=== PATIENT | male | born 1965 | race Caucasian/White ===

== ENCOUNTER 2017-03-26 07:24 | Day surgery (SDC) | payer MEDICARE, OTHER ==
[2017-03-22 14:38] VITALS: BMI 26.2
[~2017-03-26 07:24] MED LIST: LACTATED RINGERS 1,000 ML IV SCH
[2017-03-26 07:39] VITALS: TEMP 96.9
[2017-03-26] MEDS ORDERED: PROPOFOL 10 MG/ML 20 ML VIAL IV ONE (08:28)
[2017-03-26] MEDS ORDERED: LIDOCAINE 1% INJ 10MG/ML (20 ML MDV) ONE (08:28)
[2017-03-26 09:01] VITALS: RESP 18
--- NOTE | 2017-03-26 09:01 | P.PCN ---
Date of Procedure: 03/26/17 Preoperative Diagnosis: Postoperative Diagnosis: Procedure(s) Performed: Procedure: Colonoscopy and polypectomy. Preoperative diagnosis: Hemoccult-positive stools. Postoperative diagnosis: Rectal polyp snared but no large polyps or cancer. Preparation: HalfLytely prep. Sedation: Was provided by anesthesia. Brief clinical history: The patient is a 51-year-old male who is referred for this evaluation because of finding of Hemoccult-positive stools. There is no family history of colon cancer or any abdominal complaints or overt bleeding. The patient and has history of reflux but there is no recent change in his symptoms. This evaluation is to rule out colon neoplasia. This would be his first colonoscopy. Procedure: With the patient on his left lateral decubitus position and after informed consent and adequate sedation, the perianal area was inspected and it did not show any fissures or fistulas. There were no masses felt on digital rectal examination. The Olympus CFQ 160L video colonoscope was then inserted in the rectum in the usual fashion and advanced to the cecum. The mucosa appeared healthy. No obvious diverticular disease or other obvious pathology noted. In the rectum, there was a 1 cm polyp within 2 cm from the anorectal junction that was snared and retrieved by suction. No large polyps or cancer noted. I retroflexed the endoscope in the rectum before the endoscope was withdrawn. The patient tolerated the procedure well. Plan: The patient was reassured. In the absence of new upper GI complaints or anemia, I did not recommend upper GI workup at this time and this can be kept as a contingency based on his course. With the finding of polyp, I recommended repeat exam in 5 years. He will follow up with you as planned. Implants: Indications for Procedure: Operative Findings: Description of Procedure:
[2017-03-26 09:52] VITALS: BP 110/73; PULSE 80
== END 2017-03-26 09:42 | disposition home or self-care (01) ==
LOC: ORWHC2ENDO 07:24
DX: D12.8 Benign neoplasm of rectum (principal); R19.5 Other fecal abnormalities; I10 Essential (primary) hypertension; K21.9 Gastro-esophageal reflux disease without esophagitis; Z79.899 Other long term (current) drug therapy
CPT/HCPCS: 88305; 45385; J2001; J2704

== ENCOUNTER 2020-02-23 16:01 | Emergency (ER) | payer OTHER ==
[2020-02-23 16:08] VITALS: RESP 18
[2020-02-23 16:40] LABS: Basophils % (A) 0 %; Eosinophils # (A) 0.1 k/uL (0-0.7); Eosinophils % (A) 1 %; HCT 47.4 % (39.0-53.0); HGB 16.4 gm/dL (13.0-17.5); Lymphocytes # (A) 1.2 k/uL (1.0-4.8); Lymphocytes % (A) 11 %; MCH 32.2 pg (25.0-35.0); MCHC 34.6 g/dL (31.0-37.0); Monocytes # (A) 0.5 k/uL (0-1.0); Monocytes % (A) 5 %; Neutrophils # (A) 8.5 k/uL (1.3-7.7); Neutrophils % (A) 82 %; Platelet Count 296 k/uL (150-450); RDW 12.6 % (11.5-15.5); WBC 10.4 k/uL (3.8-10.6)
[2020-02-23 16:47] LABS: ALT 25 U/L (4-49); AST 22 U/L (17-59); African American GFR (CKD) >90 (>60 ml/min/1.73 sqM); Albumin 4.6 g/dL (3.5-5.0); Alkaline Phosphatase 99 U/L (38-126); Anion Gap 9 mmol/L; Blood Urea Nitrogen 17 mg/dL (9-20); Calcium 9.6 mg/dL (8.4-10.2); Carbon Dioxide 25 mmol/L (22-30); Chloride 104 mmol/L (98-107); Glucose 113 mg/dL (74-99); Non-African American GFR(CKD) >90 (>60 ml/min/1.73 sqM); Potassium 4.1 mmol/L (3.5-5.1); Sodium 138 mmol/L (137-145); Total Bilirubin 0.7 mg/dL (0.2-1.3)
--- NOTE | 2020-02-23 17:05 | ED ---
Recheck HPI - General Chief Complaint: Recheck/Abnormal Lab/Rx Stated Complaint: High BP Time Seen by Provider: 02/23/20 16:10 Source: patient Mode of arrival: ambulatory Limitations: no limitations - History of Present Illness Initial Comments: 54-year-old male presenting today for chief complaint of elevated blood pressure readings. Patient states he's been stressed from work and he called in today. Patient states his petechia his blood pressure which she noted to be higher. Patient denies any specific symptoms he states he was highly fatigue and felt like his legs were heavy today. Denies any leg weakness or sensation deficits. Patient denies any headache nausea vomiting visual changes diplopia chest pain pressure or shortness of breath he denies any leg swelling denies any nausea vomiting decreased urine output hematuria ripping tearing back pain. Patient is no focalizing complaints patient states he was told he needed a work note. Patient then presented to the ER for elevated home BP readings. Average was ~130 diastolic and ~90 systolic from paper patient provided. - Related Data Home Medications Medication Instructions Recorded Confirmed Losartan Potassium [Cozaar] 100 mg PO QAM 03/22/17 02/23/20 amLODIPine BESYLATE [Norvasc] 10 mg PO QAM 03/22/17 02/23/20 Atorvastatin Calcium [Lipitor] 20 mg PO HS 02/23/20 02/23/20 Omeprazole [PriLOSEC] 20 mg PO DAILY 02/23/20 02/23/20 predniSONE See Taper PO DIRECTED 02/23/20 02/23/20 Allergies Allergy/AdvReac Type Severity Reaction Status Date / Time No Known Allergies Allergy Verified 02/23/20 17:02 Review of Systems ROS Statement: Those systems with pertinent positive or pertinent negative responses have been documented in the HPI. ROS Other: All systems not noted in ROS Statement are negative. Past Medical History Past Medical History: GERD/Reflux, Hypertension Additional Past Medical History / Comment(s): pos occult stool,hypoglycemia History of Any Multi-Drug Resistant Organisms: None Reported Past Surgical History: Hernia Repair Additional Past Surgical History / Comment(s): lt inguinal hernia repair,uma inguinal hernia as Past Anesthesia/Blood Transfusion Reactions: No Reported Reaction Past Alcohol Use History: None Reported Past Drug Use History: None Reported - Past Family History Mother Family Medical History: Cancer Additional Family Medical History / Comment(s): melatonin skin,breast,lymphnodes Father Family Medical History: Hypertension General Exam - General Exam Comments Initial Comments: General: The patient is awake and alert, in no distress Eye: +3 mm pupils are equal, round and reactive to light, extra-ocular movements are intact. No nystagmus. There is normal conjunctiva bilaterally. No signs of icterus. Ears, nose, mouth and throat: There are moist mucous membranes and no oral lesions. Neck: The neck is supple, there is no tenderness or JVD. Cardiovascular: There is a regular rate and rhythm. No murmur, rub or gallop is appreciated. Respiratory: Lungs are clear to auscultation, respirations are non-labored, breath sounds are equal. No wheezes, stridor, rales, or rhonchi. Gastrointestinal: Soft, non-distended, non-tender abdomen without masses or organomegaly noted. There is no rebound or guarding present. No pulsatile masses Musculoskeletal: Normal ROM, no tenderness. Strength 5/5. Sensation intact. Radial pulses equal bilaterally 2+. Neurological: A&O x 3. CN II-XII intact, There are no obvious motor or sensory deficits. Coordination appears grossly intact. Speech is normal. Skin: Skin is warm and dry and no rashes or lesions are noted. No LE edema. Psychiatric: Cooperative, appropriate mood & affect, normal judgment. Limitations: no limitations Course Vital Signs 02/23/20 02/23/20 16:04 17:32 Temperature 98.0 F 98 F Pulse Rate 100 89 Respiratory 18 18 Rate Blood Pressure 153/89 136/85 O2 Sat by Pulse 99 98 Oximetry Medical Decision Making - Medical Decision Making Labs stable. No symptoms. Patient appears well. Nontoxic. Heart and peripheral vascular exam WNL. Patient EKG no acute changes. Patient does not appear in distress BP within acceptable limits. Requesting work note. Patient case discussed wt Dr. Ramirez who is agreeable to care plan and discharge. Recommend PCP f/u for BP and bring log. - Lab Data Result diagrams: 02/23/20 16:33 02/23/20 16:33 Lab Results 02/23/20 02/23/20 Range/Units 16:33 16:33 WBC 10.4 (3.8-10.6) k/uL RBC 5.10 (4.30-5.90) m/uL Hgb 16.4 (13.0-17.5) gm/dL Hct 47.4 (39.0-53.0) % MCV 93.0 (80.0-100.0) fL MCH 32.2 (25.0-35.0) pg MCHC 34.6 (31.0-37.0) g/dL RDW 12.6 (11.5-15.5) % Plt Count 296 (150-450) k/uL Neutrophils % 82 % Lymphocytes % 11 % Monocytes % 5 % Eosinophils % 1 % Basophils % 0 % Neutrophils # 8.5 H (1.3-7.7) k/uL Lymphocytes # 1.2 (1.0-4.8) k/uL Monocytes # 0.5 (0-1.0) k/uL Eosinophils # 0.1 (0-0.7) k/uL Basophils # 0.0 (0-0.2) k/uL Sodium 138 (137-145) mmol/L Potassium 4.1 (3.5-5.1) mmol/L Chloride 104 (98-107) mmol/L Carbon Dioxide 25 (22-30) mmol/L Anion Gap 9 mmol/L BUN 17 (9-20) mg/dL Creatinine 0.65 L (0.66-1.25) mg/dL Est GFR (CKD-EPI)AfAm >90 (>60 ml/min/1.73 sqM) Est GFR (CKD-EPI)NonAf >90 (>60 ml/min/1.73 sqM) Glucose 113 H (74-99) mg/dL Calcium 9.6 (8.4-10.2) mg/dL Total Bilirubin 0.7 (0.2-1.3) mg/dL AST 22 (17-59) U/L ALT 25 (4-49) U/L Alkaline Phosphatase 99 (38-126) U/L Total Protein 7.0 (6.3-8.2) g/dL Albumin 4.6 (3.5-5.0) g/dL Disposition Clinical Impression: Elevated blood pressure reading Disposition: HOME SELF-CARE Condition: Good Instructions (If sedation given, give patient instructions): Hypertension (ED) Additional Instructions: Please use medication as discussed. Please follow-up with family doctor in the next 2 days. Please return to emergency room if the symptoms increase or worsen or for any other concerns. Is patient prescribed a controlled substance at d/c from ED?: No Referrals: [facility],Clinic [Primary Care Provider] - 1-2 days Time of Disposition: 17:05
[2020-02-23 17:33] VITALS: BP 136/85; PULSE 89; TEMP 98
== END 2020-02-23 17:32 | disposition home or self-care (01) ==
LOC: EC 16:01
DX: I10 Essential (primary) hypertension (principal); F43.9 Reaction to severe stress, unspecified; K21.9 Gastro-esophageal reflux disease without esophagitis; Z79.52 Long term (current) use of systemic steroids; Z79.899 Other long term (current) drug therapy
CPT/HCPCS: 36415; 80053; 85025; 93005; 99283

== ENCOUNTER 2024-03-25 08:00 | Day surgery (SDC) | payer OTHER ==
[2024-03-25] MEDS ORDERED: PROPOFOL 10 MG/ML 20 ML VIAL IV ONE (12:52)
[2024-03-25] MEDS ORDERED: LIDOCAINE 1% INJ 10MG/ML (20 ML MDV) ONE (12:52)
--- NOTE | 2024-04-03 15:54 | PCN ---
PROCEDURE NOTE HISTORY: The patient is a 58-year-old pleasant white male scheduled for elective colonoscopy as a part of evaluation for prior history of colon polyps. Last colonoscopy was 7 years ago. PROCEDURE PERFORMED: Colonoscopy with snare polypectomy. PREOPERATIVE DIAGNOSIS: History of colon polyps. ANESTHESIA: IV sedation per Anesthesia. DESCRIPTION OF PROCEDURE: After informed consent was obtained from the patient, he was brought into the endoscopy unit. IV conscious sedation was administered by Anesthesia under continuous monitoring. Initial digital rectal examination was normal. The Olympus CF-180 video colonoscope was the inserted into the rectum, gradually advanced into the cecum. Careful examination was performed as the scope was gradually being withdrawn. The ileocecal valve and appendiceal orifice were visualized and appeared normal. The prep was excellent. In the cecum, there was a 1 cm polyp removed by snare polypectomy. In the ascending colon, there were 7 mm and 1 cm polyps removed by snare polypectomy. Transverse colon, descending colon, sigmoid colon, and rectum appeared normal. In the rectum, retroflexion was performed. No lesions were noted. Scattered sigmoid diverticulosis seen. The patient tolerated the procedure well. IMPRESSION: 1. 1 cm cecal polyp, status post snare polypectomy. 2. 1 cm and 7 mm ascending colon polyps, status post snare polypectomy. 3. Scattered sigmoid diverticulosis. RECOMMENDATIONS: Findings of this examination were discussed with the patient as well as with the family. He was advised to follow up with the biopsy results and if the biopsy reveals adenoma, he can have a repeat colonoscopy in 3 years. MMODL / IJN: [id number] /
== END 2024-03-25 13:16 ==
LOC: ORWHC2ENDO 08:00
PROVIDERS: ATTEND Internal Medicine Gastroenterology
DX: Z12.11 Encounter for screening for malignant neoplasm of colon (principal); D12.0 Benign neoplasm of cecum; D12.2 Benign neoplasm of ascending colon; K57.30 Diverticulosis of large intestine without perforation or abscess without bleeding; Z86.010 Personal history of colon polyps
CPT/HCPCS: 45385; 88305